=== PATIENT | male | born 1945 | race Caucasian/White ===

== ENCOUNTER → 2016-10-09 | Outpatient (CLI) | payer MEDICARE, BC | LOC: MW.CHNEURO 08:00 | PROVIDERS: ATTEND Psychiatry & Neurology Neuromuscular Medicine | DX: G30.1 Alzheimer's disease with late onset (principal); F02.80 Dementia in other diseases classified elsewhere, unspecified severity, without behavioral disturbance, psychotic disturbance, mood disturbance, and anxiety | CPT/HCPCS: 99214 ==

== ENCOUNTER 2017-06-04 17:06 | Inpatient (IN) | payer MEDICARE, BC ==
[2017-06-04] MEDS ORDERED: Sodium Chloride 0.9% 1,000 ML IV SCH ×2 (17:15→22:15)
--- NOTE | 2017-06-04 17:15 | EDM.PDOC ---
<Jatin Crenshaw - Last Filed: 06/04/17 18:13> ED HPI GENERAL MEDICAL PROBLEM - General Stated Complaint: STROKE Time Seen by Provider: 06/04/17 17:14 - History of Present Illness INITIAL COMMENTS - FREE TEXT/NARRATIVE: Patient stroke code was a 0, initial troponin level was negative. Patient's head CT was negative Patient's alcohol level was also negative. Patient has known dementia but was very diaphoretic on presentation. Patient's family indicated that he was slurring at the time of the incident approximately 2 hours ago but we were unable to elicit any slurring of speech while here there was no global weakness patient presented with just general confusion which family does acknowledge is his baseline. Spoke to Dr. Sanchez patient will be admitted to OBS telemetry for serial enzymes as well as any other diagnostic studies are pertinent in that time. - Related Data Allergies Allergy/AdvReac Type Severity Reaction Status Date / Time lisinopril Allergy Hives Verified 06/04/17 19:24 Home Meds: Home Meds Losartan/Hydrochlorothiazide [Losartan-HCTZ 100-12.5 MG] 1 mg PO DAILY 11/28/13 [History] Donepezil [Aricept] 5 mg PO DAILY 06/04/17 [History] Sertraline [Zoloft] 100 mg PO DAILY 06/04/17 [History] Tamsulosin [Flomax] 0.4 mg PO DAILY 06/04/17 [History] Course - Vital Signs Last Recorded V/S: Last Vital Signs Temp 36.8 C 06/05/17 04:00 Pulse 90 06/05/17 04:00 Resp 20 06/05/17 04:00 BP 130/85 06/05/17 04:00 Pulse Ox 93 L 06/05/17 04:00 - Orders/Labs/Meds Orders: Active Orders 24 hr Category Date Time Status Patient Status [ADT] Stat ADT 06/04/17 18:15 Active Cardiac Monitoring [RC] . DIRECTED Care 06/04/17 20:23 Inactive Insert Urinary Catheter [OM.PC] Q24H Care 06/04/17 20:15 Ordered Oxygen Therapy [RC] PRN Care 06/04/17 20:24 Active Urinary Catheter Assessment [RC] ASDIRECTED Care 06/04/17 20:04 Active VTE/DVT Education [RC] PER UNIT ROUTINE Care 06/04/17 20:24 Active Vital Signs [RC] Q4H Care 06/04/17 20:24 Active Regular Diet [DIET] Diet 06/04/17 Dinner Active Chest 1V Frontal [CR] Stat Exams 06/04/17 17:13 Taken Head wo Cont [CT] Stat Exams 06/04/17 17:13 Taken CBC WITH AUTO DIFF [HEME] AM Lab 06/06/17 05:11 Ordered CBC WITH AUTO DIFF [HEME] AM Lab 06/07/17 05:11 Ordered COMPREHENSIVE METABOLIC PN,CMP [CHEM] AM Lab 06/06/17 05:11 Ordered COMPREHENSIVE METABOLIC PN,CMP [CHEM] AM Lab 06/07/17 05:11 Ordered CULTURE BLOOD [BC] Stat Lab 06/04/17 20:35 Received CULTURE BLOOD [BC] Stat Lab 06/04/17 20:45 Received CULTURE URINE [RM] Routine Lab 06/04/17 20:15 Received MAGNESIUM [CHEM] AM Lab 06/06/17 05:11 Ordered MAGNESIUM [CHEM] AM Lab 06/07/17 05:11 Ordered Acetaminophen [Tylenol] Med 06/04/17 20:23 Active 500 mg PO Q4H PRN Bisacodyl [Dulcolax] Med 06/04/17 20:23 Active 5 mg PO DAILY PRN Cefepime [Maxipime in D5W 1 GM/50 ML] 1 gm Med 06/04/17 21:00 Active Premix Bag 1 bag IV Q8H Docusate Sodium [Colace] Med 06/04/17 20:23 Active 100 mg PO BID PRN Donepezil [Aricept] Med 06/05/17 09:00 Active 5 mg PO DAILY Heparin Sodium Med 06/05/17 08:00 Active 5,000 units SUBCUT Q8H Sertraline [Zoloft] Med 06/05/17 09:00 Active 100 mg PO DAILY Tamsulosin [Flomax] Med 06/05/17 09:00 Active 0.4 mg PO DAILY Temazepam [Restoril] Med 06/04/17 20:23 Active 15 mg PO BEDTIME PRN Blood Culture x2 Reflex Set [OM.PC] Stat Oth 06/04/17 20:20 Ordered Resuscitation Status Routine Resus Stat 06/04/17 20:23 Ordered Medication Orders Acetaminophen (Tylenol) 500 mg PO Q4H PRN PRN Reason: Pain (Mild 1-3)/fever Last Admin: 06/04/17 21:57 Dose: 500 mg Bisacodyl (Dulcolax) 5 mg PO DAILY PRN PRN Reason: Constipation Docusate Sodium (Colace) 100 mg PO BID PRN PRN Reason: Constipation Donepezil HCl (Aricept) 5 mg PO DAILY [facility] Heparin Sodium (Porcine) (Heparin Sodium) 5,000 units SUBCUT Q8H [facility] Cefepime HCl 1 gm/ Premix 50 mls @ 100 mls/hr IV Q8H [facility] Last Admin: 06/05/17 05:22 Dose: 100 mls/hr Infusion: 06/04/17 22:28 Dose: 100 mls/hr Admin: 06/04/17 21:58 Dose: 100 mls/hr Sodium Chloride (Normal Saline) 1,000 mls @ 125 mls/hr IV ASDIRECTED [facility] Last Admin: 06/05/17 01:20 Dose: 125 mls/hr Sertraline HCl (Zoloft) 100 mg PO DAILY [facility] Tamsulosin HCl (Flomax) 0.4 mg PO DAILY [facility] Temazepam (Restoril) 15 mg PO BEDTIME PRN PRN Reason: Sleep Last Admin: 06/05/17 01:10 Dose: 15 mg Labs: Laboratory Tests 06/04/17 06/04/17 06/04/17 Range/Units 17:10 17:10 17:10 WBC 12.09 H (4.0-11.0) K/uL RBC 5.36 (4.50-5.90) M/uL Hgb 16.7 (13.0-17.0) g/dL Hct 49.2 (38.0-50.0) % MCV 91.8 (80.0-98.0) fL MCH 31.2 (27.0-32.0) pg MCHC 33.9 (31.0-37.0) g/dL RDW Std Deviation 44.4 (28.0-62.0) fl RDW Coeff of Madhu 13 (11.0-15.0) % Plt Count 214 (150-400) K/uL MPV 10.20 (7.40-12.00) fL Neut % (Auto) 71.1 (48.0-80.0) % Lymph % (Auto) 18.7 (16.0-40.0) % [place] % (Auto) 9.2 (0.0-15.0) % Eos % (Auto) 0.8 (0.0-7.0) % Baso % (Auto) 0.2 (0.0-1.5) % Neut # (Auto) 8.6 H (1.4-5.7) K/uL Lymph # (Auto) 2.3 (0.6-2.4) K/uL [place] # (Auto) 1.1 H (0.0-0.8) K/uL Eos # (Auto) 0.1 (0.0-0.7) K/uL Baso # (Auto) 0.0 (0.0-0.1) K/uL Nucleated RBC % 0.0 /100WBC Nucleated RBCs # 0 K/uL INR 0.99 (0.86-1.11) Sodium 141 (136-146) mmol/L Potassium 3.6 (3.5-5.1) mmol/L Chloride 104 (98-110) mmol/L Carbon Dioxide 20 L (21-31) mmol/L BUN 14 (6.0-23.0) mg/dL Creatinine 1.6 H (0.6-1.5) mg/dL Est Cr Clr Drug Dosing TNP Estimated GFR (MDRD) 42.9 ml/min Glucose 156 H (60-110) mg/dL Calcium 10.5 (8.8-10.8) mg/dL Total Bilirubin 1.0 (0.1-1.5) mg/dL AST 20 (5-40) IU/L ALT 16 (8-54) IU/L Alkaline Phosphatase 170 H (40-150) Creatine Kinase 138 (9-236) IU/L CK-MB (CK-2) 0.8 (0-6.6) ng/ml Troponin I < 0.10 (0.0-0.29) NG/ML Total Protein 8.4 H (6.0-8.0) g/dL Albumin 4.5 (3.4-4.8) g/dL Globulin 3.9 H (2.0-3.5) g/dL Albumin/Globulin Ratio 1.2 L (1.3-2.8) TSH 3rd Generation 2.06 (0.47-5.0) uIU/mL Urine Color Urine Appearance Urine pH (5.0-8.0) Ur Specific [place] (1.001-1.035) Urine Protein (NEGATIVE) mg/dL Urine Glucose (UA) (NEGATIVE) mg/dL Urine Ketones (NEGATIVE) mg/dL Urine Occult Blood (NEGATIVE) Urine Nitrite (NEGATIVE) Urine Bilirubin (NEGATIVE) Urine Ictotest Urine Urobilinogen (<2.0) EU/dL Ur Leukocyte Esterase (NEGATIVE) Urine RBC (0-2/HPF) Urine WBC (0-5/HPF) Ur Epithelial Cells (NONE-FEW) Urine Bacteria (NEGATIVE) Hyaline Casts (0-2/LPF) Urine Mucus (NONE-MOD) Urine Opiates Screen (NEGATIVE) Ur Oxycodone Screen (NEGATIVE) Urine Methadone Screen (NEGATIVE) Ur Barbiturates Screen (NEGATIVE) Ur Phencyclidine Scrn (NEGATIVE) Ur Amphetamine Screen (NEGATIVE) U Methamphetamines Scrn (NEGATIVE) U Benzodiazepines Scrn (NEGATIVE) U Cocaine Metab Screen (NEGATIVE) U Marijuana (THC) Screen (NEGATIVE) Ethyl Alcohol < 10.0 mg/dL 06/04/17 06/04/17 Range/Units 20:15 20:15 WBC (4.0-11.0) K/uL RBC (4.50-5.90) M/uL Hgb (13.0-17.0) g/dL Hct (38.0-50.0) % MCV (80.0-98.0) fL MCH (27.0-32.0) pg MCHC (31.0-37.0) g/dL RDW Std Deviation (28.0-62.0) fl RDW Coeff of Madhu (11.0-15.0) % Plt Count (150-400) K/uL MPV (7.40-12.00) fL Neut % (Auto) (48.0-80.0) % Lymph % (Auto) (16.0-40.0) % [place] % (Auto) (0.0-15.0) % Eos % (Auto) (0.0-7.0) % Baso % (Auto) (0.0-1.5) % Neut # (Auto) (1.4-5.7) K/uL Lymph # (Auto) (0.6-2.4) K/uL [place] # (Auto) (0.0-0.8) K/uL Eos # (Auto) (0.0-0.7) K/uL Baso # (Auto) (0.0-0.1) K/uL Nucleated RBC % /100WBC Nucleated RBCs # K/uL INR (0.86-1.11) Sodium (136-146) mmol/L Potassium (3.5-5.1) mmol/L Chloride (98-110) mmol/L Carbon Dioxide (21-31) mmol/L BUN (6.0-23.0) mg/dL Creatinine (0.6-1.5) mg/dL Est Cr Clr Drug Dosing Estimated GFR (MDRD) ml/min Glucose (60-110) mg/dL Calcium (8.8-10.8) mg/dL Total Bilirubin (0.1-1.5) mg/dL AST (5-40) IU/L ALT (8-54) IU/L Alkaline Phosphatase (40-150) Creatine Kinase (9-236) IU/L CK-MB (CK-2) (0-6.6) ng/ml Troponin I (0.0-0.29) NG/ML Total Protein (6.0-8.0) g/dL Albumin (3.4-4.8) g/dL Globulin (2.0-3.5) g/dL Albumin/Globulin Ratio (1.3-2.8) TSH 3rd Generation (0.47-5.0) uIU/mL Urine Color YELLOW Urine Appearance SLT CLOUDY Urine pH 5.5 (5.0-8.0) Ur Specific [place] >= 1.030 (1.001-1.035) Urine Protein NEGATIVE (NEGATIVE) mg/dL Urine Glucose (UA) NEGATIVE (NEGATIVE) mg/dL Urine Ketones 15 H (NEGATIVE) mg/dL Urine Occult Blood TRACE-INTACT (NEGATIVE) Urine Nitrite NEGATIVE (NEGATIVE) Urine Bilirubin SMALL H (NEGATIVE) Urine Ictotest NEGATIVE Urine Urobilinogen 0.2 (<2.0) EU/dL Ur Leukocyte Esterase NEGATIVE (NEGATIVE) Urine RBC 1-2 (0-2/HPF) Urine WBC 0-2 (0-5/HPF) Ur Epithelial Cells RARE (NONE-FEW) Urine Bacteria FEW (NEGATIVE) Hyaline Casts 0-2 (0-2/LPF) Urine Mucus MANY (NONE-MOD) Urine Opiates Screen NEGATIVE (NEGATIVE) Ur Oxycodone Screen NEGATIVE (NEGATIVE) Urine Methadone Screen NEGATIVE (NEGATIVE) Ur Barbiturates Screen NEGATIVE (NEGATIVE) Ur Phencyclidine Scrn NEGATIVE (NEGATIVE) Ur Amphetamine Screen NEGATIVE (NEGATIVE) U Methamphetamines Scrn NEGATIVE (NEGATIVE) U Benzodiazepines Scrn NEGATIVE (NEGATIVE) U Cocaine Metab Screen NEGATIVE (NEGATIVE) U Marijuana (THC) Screen NEGATIVE (NEGATIVE) Ethyl Alcohol mg/dL Meds: Medications Generic Name Dose Route Start Last Admin Trade Name Isael PRN Reason Stop Dose Admin Acetaminophen 500 mg 06/04/17 20:23 06/04/17 21:57 Tylenol PO 500 mg Q4H PRN Administration Pain (Mild 1-3)/fever Bisacodyl 5 mg 06/04/17 20:23 Dulcolax PO DAILY PRN Constipation Docusate Sodium 100 mg 06/04/17 20:23 Colace PO BID PRN Constipation Donepezil HCl 5 mg 06/05/17 09:00 Aricept PO DAILY [facility] Heparin Sodium (Porcine) 5,000 units 06/05/17 08:00 Heparin Sodium SUBCUT Q8H [facility] Cefepime HCl 1 gm/ Premix 50 mls @ 100 mls/hr 06/04/17 21:00 06/05/17 05:22 IV 100 mls/hr Q8H ESTEF[facility] Administration Sodium Chloride 1,000 mls @ 125 mls/hr 06/04/17 22:15 06/05/17 01:20 Normal Saline IV 125 mls/hr ASDIRECTED [facility] Administration Sertraline HCl 100 mg 06/05/17 09:00 Zoloft PO DAILY [facility] Tamsulosin HCl 0.4 mg 06/05/17 09:00 Flomax PO DAILY [facility] Temazepam 15 mg 06/04/17 20:23 06/05/17 01:10 Restoril PO 15 mg BEDTIME PRN Administration Sleep Discontinued Medications Generic Name Dose Route Start Last Admin Trade Name Isael PRN Reason Stop Dose Admin Sodium Chloride 1,000 mls @ 125 mls/hr 06/04/17 17:15 06/04/17 17:46 Normal Saline IV 125 mls/hr STAT ESTEFANI Administration Sodium Chloride 1,000 mls @ 150 mls/hr 06/05/17 09:00 Normal Saline IV DAILY [facility] Influenza Virus Vaccine 1 each 06/04/17 19:50 Pharmacy To Dose - Influenza Vaccine IM 06/04/17 19:51 ONETIME ONE Influenza Virus Vaccine 60 mcg 06/04/17 20:00 Fluarix Quad [id number] IM 06/04/17 20:01 .ONCE ONE Departure - Departure Disposition: Admitted As Inpatient 68 Clinical Impression: Delirium, Diaphoresis - Discharge Information - My Orders Last 24 Hours: My Active Orders 06/04/17 17:13 Chest 1V Frontal [CR] Stat Head wo Cont [CT] Stat - Assessment/Plan Last 24 Hours: My Active Orders 06/04/17 17:13 Chest 1V Frontal [CR] Stat Head wo Cont [CT] Stat <Gonsalo Fletcher - Last Filed: 06/05/17 07:23> ED HPI GENERAL MEDICAL PROBLEM - General Source of Information: Reports: Patient - History of Present Illness INITIAL COMMENTS - FREE TEXT/NARRATIVE: HISTORY AND PHYSICAL: History of present illness: [Patient presents by private vehicle, he has a history of dementia and is confused at current, his family is worried about stroke as he had had a fall, his last seen normal at 3-1/2-4 hours prior, on arrival his score is 0 as well as repeat stroke score patient has no complaints such as fever nausea vomiting diarrhea constipation chest pain shortness breath headache dizziness palpitation no bowel or urine symptoms he is generally unreliable due to dementia diagnosis, is visibly diaphoretic but that has no shortness of breath and complains of no chest pain Review of systems: As per history of present illness and below otherwise all systems reviewed and negative. Past medical history: As per history of present illness and as reviewed below otherwise noncontributory. Surgical history: As per history of present illness and as reviewed below otherwise noncontributory. Social history: No reported history of drug or alcohol abuse. Family history: As per history of present illness and as reviewed below otherwise noncontributory. Physical exam: HEENT: Atraumatic, normocephalic, pupils reactive, negative for conjunctival pallor or scleral icterus, mucous membranes moist, throat clear, neck supple, nontender, trachea midline. Lungs: Clear to auscultation, breath sounds equal bilaterally, chest nontender. Heart: S1S2, regular, negative for clicks, rubs, or JVD. Abdomen: Soft, nondistended, nontender. Negative for masses or hepatosplenomegaly. Negative for costovertebral tenderness. Pelvis: Stable nontender. Genitourinary: Deferred. Rectal: Deferred. Extremities: Atraumatic, negative for cords or calf pain. Neurovascular unremarkable. Neuro: Awake, alert, oriented. Cranial nerves II through XII unremarkable. Cerebellum unremarkable. Motor and sensory unremarkable throughout. Exam nonfocal. Diagnostics: []Lab as below EKG Chest [address] no contrast Therapeutics: []Normal saline Patient admitted for observation telemetry Impression: []Confusion/delirium Definitive disposition and diagnosis as appropriate pending reevaluation and review of above. Social & Family History - Tobacco Use Smoking Status *Q: Never Smoker Second Hand Smoke Exposure: No - Alcohol Use Days Per Week of Alcohol Use: 0 - Recreational Drug Use Recreational Drug Use: No Drug Use in Last 12 Months: No ED ROS GENERAL - Review of Systems Review Of Systems: ROS reveals no pertinent complaints other than HPI. ED EXAM, GENERAL - Physical Exam Exam: See Below Course - Vital Signs Last Recorded V/S: Last Vital Signs Temp 36.8 C 06/05/17 04:00 Pulse 90 06/05/17 04:00 Resp 20 06/05/17 04:00 BP 130/85 06/05/17 04:00 Pulse Ox 93 L 06/05/17 04:00 - Orders/Labs/Meds Labs: Laboratory Tests 06/04/17 06/04/17 06/04/17 Range/Units 17:10 17:10 17:10 WBC 12.09 H (4.0-11.0) K/uL RBC 5.36 (4.50-5.90) M/uL Hgb 16.7 (13.0-17.0) g/dL Hct 49.2 (38.0-50.0) % MCV 91.8 (80.0-98.0) fL MCH 31.2 (27.0-32.0) pg MCHC 33.9 (31.0-37.0) g/dL RDW Std Deviation 44.4 (28.0-62.0) fl RDW Coeff of Madhu 13 (11.0-15.0) % Plt Count 214 (150-400) K/uL MPV 10.20 (7.40-12.00) fL Neut % (Auto) 71.1 (48.0-80.0) % Lymph % (Auto) 18.7 (16.0-40.0) % [place] % (Auto) 9.2 (0.0-15.0) % Eos % (Auto) 0.8 (0.0-7.0) % Baso % (Auto) 0.2 (0.0-1.5) % Neut # (Auto) 8.6 H (1.4-5.7) K/uL Lymph # (Auto) 2.3 (0.6-2.4) K/uL [place] # (Auto) 1.1 H (0.0-0.8) K/uL Eos # (Auto) 0.1 (0.0-0.7) K/uL Baso # (Auto) 0.0 (0.0-0.1) K/uL Nucleated RBC % 0.0 /100WBC Nucleated RBCs # 0 K/uL INR 0.99 (0.86-1.11) Sodium 141 (136-146) mmol/L Potassium 3.6 (3.5-5.1) mmol/L Chloride 104 (98-110) mmol/L Carbon Dioxide 20 L (21-31) mmol/L BUN 14 (6.0-23.0) mg/dL Creatinine 1.6 H (0.6-1.5) mg/dL Est Cr Clr Drug Dosing TNP Estimated GFR (MDRD) 42.9 ml/min Glucose 156 H (60-110) mg/dL Calcium 10.5 (8.8-10.8) mg/dL Total Bilirubin 1.0 (0.1-1.5) mg/dL AST 20 (5-40) IU/L ALT 16 (8-54) IU/L Alkaline Phosphatase 170 H (40-150) Creatine Kinase 138 (9-236) IU/L CK-MB (CK-2) 0.8 (0-6.6) ng/ml Troponin I < 0.10 (0.0-0.29) NG/ML Total Protein 8.4 H (6.0-8.0) g/dL Albumin 4.5 (3.4-4.8) g/dL Globulin 3.9 H (2.0-3.5) g/dL Albumin/Globulin Ratio 1.2 L (1.3-2.8) TSH 3rd Generation 2.06 (0.47-5.0) uIU/mL Urine Color Urine Appearance Urine pH (5.0-8.0) Ur Specific [place] (1.001-1.035) Urine Protein (NEGATIVE) mg/dL Urine Glucose (UA) (NEGATIVE) mg/dL Urine Ketones (NEGATIVE) mg/dL Urine Occult Blood (NEGATIVE) Urine Nitrite (NEGATIVE) Urine Bilirubin (NEGATIVE) Urine Ictotest Urine Urobilinogen (<2.0) EU/dL Ur Leukocyte Esterase (NEGATIVE) Urine RBC (0-2/HPF) Urine WBC (0-5/HPF) Ur Epithelial Cells (NONE-FEW) Urine Bacteria (NEGATIVE) Hyaline Casts (0-2/LPF) Urine Mucus (NONE-MOD) Urine Opiates Screen (NEGATIVE) Ur Oxycodone Screen (NEGATIVE) Urine Methadone Screen (NEGATIVE) Ur Barbiturates Screen (NEGATIVE) Ur Phencyclidine Scrn (NEGATIVE) Ur Amphetamine Screen (NEGATIVE) U Methamphetamines Scrn (NEGATIVE) U Benzodiazepines Scrn (NEGATIVE) U Cocaine Metab Screen (NEGATIVE) U Marijuana (THC) Screen (NEGATIVE) Ethyl Alcohol < 10.0 mg/dL 06/04/17 06/04/17 Range/Units 20:15 20:15 WBC (4.0-11.0) K/uL RBC (4.50-5.90) M/uL Hgb (13.0-17.0) g/dL Hct (38.0-50.0) % MCV (80.0-98.0) fL MCH (27.0-32.0) pg MCHC (31.0-37.0) g/dL RDW Std Deviation (28.0-62.0) fl RDW Coeff of Madhu (11.0-15.0) % Plt Count (150-400) K/uL MPV (7.40-12.00) fL Neut % (Auto) (48.0-80.0) % Lymph % (Auto) (16.0-40.0) % [place] % (Auto) (0.0-15.0) % Eos % (Auto) (0.0-7.0) % Baso % (Auto) (0.0-1.5) % Neut # (Auto) (1.4-5.7) K/uL Lymph # (Auto) (0.6-2.4) K/uL [place] # (Auto) (0.0-0.8) K/uL Eos # (Auto) (0.0-0.7) K/uL Baso # (Auto) (0.0-0.1) K/uL Nucleated RBC % /100WBC Nucleated RBCs # K/uL INR (0.86-1.11) Sodium (136-146) mmol/L Potassium (3.5-5.1) mmol/L Chloride (98-110) mmol/L Carbon Dioxide (21-31) mmol/L BUN (6.0-23.0) mg/dL Creatinine (0.6-1.5) mg/dL Est Cr Clr Drug Dosing Estimated GFR (MDRD) ml/min Glucose (60-110) mg/dL Calcium (8.8-10.8) mg/dL Total Bilirubin (0.1-1.5) mg/dL AST (5-40) IU/L ALT (8-54) IU/L Alkaline Phosphatase (40-150) Creatine Kinase (9-236) IU/L CK-MB (CK-2) (0-6.6) ng/ml Troponin I (0.0-0.29) NG/ML Total Protein (6.0-8.0) g/dL Albumin (3.4-4.8) g/dL Globulin (2.0-3.5) g/dL Albumin/Globulin Ratio (1.3-2.8) TSH 3rd Generation (0.47-5.0) uIU/mL Urine Color YELLOW Urine Appearance SLT CLOUDY Urine pH 5.5 (5.0-8.0) Ur Specific [place] >= 1.030 (1.001-1.035) Urine Protein NEGATIVE (NEGATIVE) mg/dL Urine Glucose (UA) NEGATIVE (NEGATIVE) mg/dL Urine Ketones 15 H (NEGATIVE) mg/dL Urine Occult Blood TRACE-INTACT (NEGATIVE) Urine Nitrite NEGATIVE (NEGATIVE) Urine Bilirubin SMALL H (NEGATIVE) Urine Ictotest NEGATIVE Urine Urobilinogen 0.2 (<2.0) EU/dL Ur Leukocyte Esterase NEGATIVE (NEGATIVE) Urine RBC 1-2 (0-2/HPF) Urine WBC 0-2 (0-5/HPF) Ur Epithelial Cells RARE (NONE-FEW) Urine Bacteria FEW (NEGATIVE) Hyaline Casts 0-2 (0-2/LPF) Urine Mucus MANY (NONE-MOD) Urine Opiates Screen NEGATIVE (NEGATIVE) Ur Oxycodone Screen NEGATIVE (NEGATIVE) Urine Methadone Screen NEGATIVE (NEGATIVE) Ur Barbiturates Screen NEGATIVE (NEGATIVE) Ur Phencyclidine Scrn NEGATIVE (NEGATIVE) Ur Amphetamine Screen NEGATIVE (NEGATIVE) U Methamphetamines Scrn NEGATIVE (NEGATIVE) U Benzodiazepines Scrn NEGATIVE (NEGATIVE) U Cocaine Metab Screen NEGATIVE (NEGATIVE) U Marijuana (THC) Screen NEGATIVE (NEGATIVE) Ethyl Alcohol mg/dL Meds: Medications Generic Name Dose Route Start Last Admin Trade Name Freq PRN Reason Stop Dose Admin Acetaminophen 500 mg 06/04/17 20:23 06/04/17 21:57 Tylenol PO 500 mg Q4H PRN Administration Pain (Mild 1-3)/fever Bisacodyl 5 mg 06/04/17 20:23 Dulcolax PO DAILY PRN Constipation Docusate Sodium 100 mg 06/04/17 20:23 Colace PO BID PRN Constipation Donepezil HCl 5 mg 06/05/17 09:00 Aricept PO DAILY [facility] Heparin Sodium (Porcine) 5,000 units 06/05/17 08:00 Heparin Sodium SUBCUT Q8H [facility] Cefepime HCl 1 gm/ Premix 50 mls @ 100 mls/hr 06/04/17 21:00 06/05/17 05:22 IV 100 mls/hr Q8H [facility] Administration Sodium Chloride 1,000 mls @ 125 mls/hr 06/04/17 22:15 06/05/17 01:20 Normal Saline IV 125 mls/hr ASDIRECTED [facility] Administration Sertraline HCl 100 mg 06/05/17 09:00 Zoloft PO DAILY [facility] Tamsulosin HCl 0.4 mg 06/05/17 09:00 Flomax PO DAILY [facility] Temazepam 15 mg 06/04/17 20:23 06/05/17 01:10 Restoril PO 15 mg BEDTIME PRN Administration Sleep Discontinued Medications Generic Name Dose Route Start Last Admin Trade Name Freq PRN Reason Stop Dose Admin Sodium Chloride 1,000 mls @ 125 mls/hr 06/04/17 17:15 06/04/17 17:46 Normal Saline IV 125 mls/hr STAT EST[facility] Administration Sodium Chloride 1,000 mls @ 150 mls/hr 06/05/17 09:00 Normal Saline IV DAILY [facility] Influenza Virus Vaccine 1 each 06/04/17 19:50 Pharmacy To Dose - Influenza Vaccine IM 06/04/17 19:51 ONETIME ONE Influenza Virus Vaccine 60 mcg 06/04/17 20:00 Fluarix Quad [id number] IM 06/04/17 20:01 .ONCE ONE Departure - Departure Time of Disposition: 07:22 Condition: Fair
[2017-06-04 17:51] LABS: CHLORIDE,CL 104 mmol/L (98-110); SODIUM,NA 141 mmol/L (136-146)
[2017-06-04] MEDS ORDERED: FLU Vacc QS 2017-18 (36mos UP)/PF 60 MCG/0.5 ML Syringe IM ONE (20:00)
--- NOTE | 2017-06-04 20:11 | PCM.HP ---
H&P History of Present Illness - General Date of Service: 06/04/17 Admit Problem/Dx: Admission Diagnosis/Problem Admission Diagnosis/Problem Delirium Source of Information: Family, Provider - History of Present Illness Initial Comments - Free Text/Narative: This man has Alzheimer's dementia. He lives with a daughter. His family noticed that he has been weak and shaky today. He was sweaty. He was more confused than usual and he had some transient slurring of speech. He was seen in the ED and admission was recommended. - Related Data Allergies/Adverse Reactions: Allergies Allergy/AdvReac Type Severity Reaction Status Date / Time lisinopril Allergy Hives Verified 06/04/17 19:24 Home Medications: Home Meds Losartan/Hydrochlorothiazide [Losartan-HCTZ 100-12.5 MG] 1 mg PO DAILY 11/28/13 [History] Donepezil [Aricept] 5 mg PO DAILY 06/04/17 [History] Sertraline [Zoloft] 100 mg PO DAILY 06/04/17 [History] Tamsulosin [Flomax] 0.4 mg PO DAILY 06/04/17 [History] Past Medical History Cardiovascular History: Reports: Hypertension. Denies: CAD, Cardiomyopathy, Heart Failure, Heart Murmur, High Cholesterol, [place] Respiratory History: Denies: COPD, Interstitial Lung Disease Gastrointestinal History: Denies: Cirrhosis Genitourinary History: Reports: BPH. Denies: Chronic Renal Insuffiency Musculoskeletal History: Denies: Connective Tissue Disease, Muscular Dystrophy, RA, SLE Neurological History: Reports: Alzheimers Disease. Denies: CVA, MS, Parkinson's , Seizure Psychiatric History: Reports: Anxiety, Depression Endocrine/Metabolic History: Denies: Diabetes, Type I, Diabetes, Type II Hematologic History: Denies: Anticoagulation Therapy, Bleeding Disorder Immunologic History: Denies: HIV Oncologic (Cancer) History: Reports: None - Infectious Disease History Infectious Disease History: Reports: Shingles Social & Family History - Family History HEENT: Reports: None Cardiac: Reports: CAD, [place] Neurological: Reports: Alzheimers Disease Endocrine/Metabolic: Reports: Hypoparathyroidism Oncologic: Reports: Breast, Leukemia, Ovarian - Tobacco Use Smoking Status *Q: Never Smoker Second Hand Smoke Exposure: No - Caffeine Use Caffeine Use: Reports: Coffee - Alcohol Use Days Per Week of Alcohol Use: 0 - Recreational Drug Use Recreational Drug Use: No Drug Use in Last 12 Months: No H&P Review of Systems - Review of Systems: Review Of Systems: See Below General: Reports: Other (sweaty). Denies: Fever Pulmonary: Reports: Cough (minimal cough). Denies: Shortness of Breath Cardiovascular: Denies: Chest Pain, Palpitations, Edema, Lightheadedness Gastrointestinal: Denies: Abdominal Pain, Black Stool, Bloody Stool, Diarrhea, Difficulty Swallowing, Hematemesis, Hematochezia, Vomiting Genitourinary: Denies: Dysuria, Hematuria Psychiatric: Reports: Confusion Exam - Exam Exam: See Below - Vital Signs Vital Signs: Last Vital Signs Temp 98.1 F 06/04/17 17:57 Pulse 115 H 06/04/17 17:57 Resp 16 06/04/17 17:57 BP 146/103 H 06/04/17 17:57 Pulse Ox 96 06/04/17 17:57 Weight: 81 kg - Exam General: Cooperative (pleasant but very confused. seems unable to answer simple questions in a coherent fashion.) HEENT: EOMI Neck: Supple, Trachea Midline Lungs: Clear to Auscultation, Normal Respiratory Effort Cardiovascular: Regular Rate, Regular Rhythm. No: Tachycardia, Systolic Murmur , Diastolic Murmur GI/Abdominal Exam: Soft, Non-Tender (Male) Exam: Normal Inspection. No: Rash, Scrotal Swelling Rectal (Males) Exam: Normal Exam Extremities: No Pedal Edema (rectal temperature was 99.8 F ; rectal exam normal; ), Slow Capillary Refill (capillary refill in toes about 3-4 seconds) Neuro Extensive - Motor, Sensory, Reflexes: No: Facial palsy (L), Facial Palsy ( R), Hemeplagia (R), Hemeplagia (L) - Patient Data Result Diagrams: 06/04/17 17:10 06/04/17 17:10 [place] Results Last 24 hrs: Microbiology 06/04/17 18:25 Influenza Type A Antigen Screen - Final Nasopharyngeal Swab NEGATIVE INFLUENZA A VIRUS AG Influenza Type B Antigen Screen - Final NEGATIVE INFLUENZA B VIRUS AG *Q Meaningful Use (ADM) - VTE *Q VTE Criteria *Q: - Stroke *Q Stroke Criteria *Q: - AMI *Q AMI Criteria *Q: - Problem List (1) Alzheimer's dementia SNOMED Code(s): 24696708 ICD Code: G30.9 - ALZHEIMER'S DISEASE, UNSPECIFIED Status: Acute Current Visit: Yes (2) Sepsis SNOMED Code(s): 19200882 ICD Code: A41.9 - SEPSIS, UNSPECIFIED ORGANISM Status: Acute Current Visit: Yes Problem List Initiated/Reviewed/Updated: Yes Orders Last 24hrs: Medication Orders Sodium Chloride (Normal Saline) 1,000 mls @ 125 mls/hr IV STAT [facility] Last Admin: 06/04/17 17:46 Dose: 125 mls/hr Assessment/Plan Comment:: 06/04/2017 he has a tachycardia and slight elevation in his wbc count. He has an anion gap of 17. His rectal temperature is slightly elevated although technically in the normal range. These findings are c/w sepsis. Will get catheterized UA and culture and presumptively start antibiotics. blood culture ordered. I discussed "code status " with family members . He is to be code level 1 for the present time. I discussed diagnosis and guarded prognosis. See orders Osmar Sanchez MD
[2017-06-04] MEDS ORDERED: Docusate Sodium 100 MG Cap PO PRN (20:23)
[2017-06-04] MEDS ORDERED: Acetaminophen 325 MG Tab PO PRN (20:23)
[2017-06-04] MEDS ORDERED: Bisacodyl 5 MG Tab PO PRN (20:23)
[2017-06-04] MEDS: Cefepime 1 GM in Premix Bag 1 BAG IV SCH (21:58)
[2017-06-05] MEDS: Temazepam 15 MG Cap PO PRN ×2 (01:10→22:51)
[2017-06-05] MEDS: Cefepime 1 GM in Premix Bag 1 BAG IV SCH ×3 (05:22→21:32)
[2017-06-05 06:42] LABS: CHLORIDE,CL 111 mmol/L (98-110); SODIUM,NA 140 mmol/L (136-146)
[2017-06-05] MEDS: Heparin Sodium 5,000 Units/ML Vial SUBCUT SCH ×2 (08:23→16:08)
[2017-06-05] MEDS: Tamsulosin 0.4 MG Cap.ER PO SCH (08:24)
[2017-06-05] MEDS: Sertraline 100 MG Tab PO SCH (08:24)
[2017-06-05] MEDS: Donepezil 5 MG Tab PO SCH (08:24)
[2017-06-05] MEDS ORDERED: Sodium Chloride 0.9% 1,000 ML IV SCH (09:00)
--- NOTE | 2017-06-05 11:04 | CT ---
EXAM DATE: 06/04/17 PATIENT'S AGE: 72 Patient: NELA FRANKEL Facility: [place], [place] Site . Site : 1945 Study: CT Head STROKE PROTOCOL wo cont [id number]/15/2017 5:30:21 PM Ordering Physician: Doctor Maza Final Report: INDICATION: STROKE CODE TECHNIQUE: Non-contrast CT of the head is submitted. Compared to prior study from April 29, 2014. FINDINGS: The ventricles, sulci and gyri are of normal size, shape and contour. Midline structures are centrally located. No convincing evidence of intra- or extra- axial fluid collections. IMPRESSION: 1. No radiographic evidence of acute intracranial abnormalities. Dictated by Alex Elder MD @ 06/04/2017 5:35:05 PM Dictated by: Alex Elder MD @ 06/04/2017 17:35:37 (Electronic Signature) Report Signed by Proxy. [facility]
--- NOTE | 2017-06-05 11:05 | CR ---
EXAM DATE: 06/04/17 PATIENT'S AGE: 72 Patient: NELA FRANKEL Facility: [place], [place] Site . Site : 1945 Study: XRay Chest [id number]/15/2017 5:30:43 PM Ordering Physician: Doctor Maza Final Report: INDICATION: stroke TECHNIQUE: Chest 1 view COMPARISON: None FINDINGS: Cardiovascular and mediastinum: Heart size and vasculature are normal in caliber and appearance. Mediastinum is within normal limits. Lungs and pleural space: No focal consolidation. Elevation of the right hemidiaphragm. Mild scarring. No sign of pleural effusion. No pneumothorax. Bones and soft tissues: Degenerative changes. IMPRESSION: No acute cardiopulmonary disease. Dictated by Murali Pederson MD @ 06/04/2017 5:57:32 PM Dictated by: Murali Pederson MD @ 06/04/2017 17:57:55 (Electronic Signature) Report Signed by Proxy. [facility]
--- NOTE | 2017-06-05 12:54 | PCM.PN ---
- General Info Date of Service: 06/05/17 Subjective Update: 9-year-old male with a history of Alzheimer's dementia was evaluated this morning with his family around his bedside. As for the patient, he has no complaints. He denies any fevers chills shortness of breath. The daughter of the patient tells me that he did have an episode of acute confusion after having a fall and that's why they brought him in. He also showed episodes of slurred speech. All of these symptoms have resolved now. Patient also found to have an elevated white count on admission. - Review of Systems General: Reports: Other (See history of present illness) - Patient Data Vitals - Most Recent: Last Vital Signs Temp 36.8 C 06/05/17 12:00 Pulse 104 H 06/05/17 12:00 Resp 22 H 06/05/17 12:00 BP 145/91 H 06/05/17 12:00 Pulse Ox 91 L 06/05/17 12:00 Weight - Most Recent: 81.5 kg I&O - Last 24 Hours: Intake & Output 06/04/17 06/05/17 06/05/17 22:59 06:59 14:59 Intake Total 50 1471 Output Total 350 Balance 50 1121 Lab Results Last 24 Hours: Laboratory Results - last 24 hr 06/05/17 06/05/17 Range/Units 06:08 06:08 WBC 10.27 (4.0-11.0) K/uL RBC 4.62 (4.50-5.90) M/uL Hgb 14.2 (13.0-17.0) g/dL Hct 42.7 (38.0-50.0) % MCV 92.4 (80.0-98.0) fL MCH 30.7 (27.0-32.0) pg MCHC 33.3 (31.0-37.0) g/dL RDW Std Deviation 45.0 (28.0-62.0) fl RDW Coeff of Madhu 13 (11.0-15.0) % Plt Count 169 (150-400) K/uL MPV 9.70 (7.40-12.00) fL Neut % (Auto) 75.6 (48.0-80.0) % Lymph % (Auto) 13.2 L (16.0-40.0) % Lyman % (Auto) 10.7 (0.0-15.0) % Eos % (Auto) 0.4 (0.0-7.0) % Baso % (Auto) 0.1 (0.0-1.5) % Neut # (Auto) 7.8 H (1.4-5.7) K/uL Lymph # (Auto) 1.4 (0.6-2.4) K/uL Lyman # (Auto) 1.1 H (0.0-0.8) K/uL Eos # (Auto) 0.0 (0.0-0.7) K/uL Baso # (Auto) 0.0 (0.0-0.1) K/uL Nucleated RBC % 0.0 /100WBC Nucleated RBCs # 0 K/uL Sodium 140 (136-146) mmol/L Potassium 3.7 (3.5-5.1) mmol/L Chloride 111 H (98-110) mmol/L Carbon Dioxide 21 (21-31) mmol/L BUN 12 (6.0-23.0) mg/dL Creatinine 1.0 (0.6-1.5) mg/dL Est Cr Clr Drug Dosing 62.03 mL/min Estimated GFR (MDRD) > 60.0 ml/min Glucose 118 H (60-110) mg/dL Calcium 9.0 (8.8-10.8) mg/dL Magnesium 1.4 L (1.5-2.3) mEq/L Total Bilirubin 1.1 (0.1-1.5) mg/dL AST 18 (5-40) IU/L ALT 12 (8-54) IU/L Alkaline Phosphatase 125 (40-150) Total Protein 6.4 (6.0-8.0) g/dL Albumin 3.7 (3.4-4.8) g/dL Globulin 2.7 (2.0-3.5) g/dL Albumin/Globulin Ratio 1.4 (1.3-2.8) Med Orders - Current: Current Medications Acetaminophen (Tylenol) 500 mg PO Q4H PRN PRN Reason: Pain (Mild 1-3)/fever Last Admin: 06/04/17 21:57 Dose: 500 mg Bisacodyl (Dulcolax) 5 mg PO DAILY PRN PRN Reason: Constipation Docusate Sodium (Colace) 100 mg PO BID PRN PRN Reason: Constipation Donepezil HCl (Aricept) 5 mg PO DAILY [facility] Last Admin: 06/05/17 08:24 Dose: 5 mg Heparin Sodium (Porcine) (Heparin Sodium) 5,000 units SUBCUT Q8H [facility] Last Admin: 06/05/17 08:23 Dose: 5,000 units Sodium Chloride (Normal Saline) 1,000 mls @ 125 mls/hr IV ASDIRECTED [facility] Last Admin: 06/05/17 01:20 Dose: 125 mls/hr Sertraline HCl (Zoloft) 100 mg PO DAILY [facility] Last Admin: 06/05/17 08:24 Dose: 100 mg Tamsulosin HCl (Flomax) 0.4 mg PO DAILY [facility] Last Admin: 06/05/17 08:24 Dose: 0.4 mg Temazepam (Restoril) 15 mg PO BEDTIME PRN PRN Reason: Sleep Last Admin: 06/05/17 01:10 Dose: 15 mg Discontinued Medications Sodium Chloride (Normal Saline) 1,000 mls @ 125 mls/hr IV STAT [facility] Last Admin: 06/04/17 17:46 Dose: 125 mls/hr Cefepime HCl 1 gm/ Premix 50 mls @ 100 mls/hr IV Q8H [facility] Last Admin: 06/05/17 05:22 Dose: 100 mls/hr Sodium Chloride (Normal Saline) 1,000 mls @ 150 mls/hr IV DAILY [facility] Influenza Virus Vaccine (Pharmacy To Dose - Influenza Vaccine) 1 each IM ONETIME ONE Stop: 06/04/17 19:51 Influenza Virus Vaccine (Fluarix Quad [id number]) 60 mcg IM .ONCE ONE Stop: 06/04/17 20:01 - Exam General: Alert, Oriented HEENT: Pupils Equal Lungs: Clear to Auscultation, Normal Respiratory Effort Cardiovascular: Regular Rate, Regular Rhythm GI/Abdominal Exam: Normal Bowel Sounds, Soft Extremities: Normal Inspection, Normal Range of Motion, No Pedal Edema, Normal Capillary Refill Skin: Other (Warm intact, no rashes, abscesses, any areas of cellulitis.) Psy/Mental Status: Agitated, Other (History of Alzheimers. Normal speech) - Problem List Review Problem List Initiated/Reviewed/Updated: Yes - My Orders Last 24 Hours: My Active Orders 06/05/17 09:25 Discontinue Telemetry Monitoring [Cardiac Monitoring Discontinue] [RC] Click to Edit 06/05/17 10:26 Remove Harris Catheter [Urinary Catheter Removal] [RC] Per Unit Routine - Plan Plan:: Assessment: #1. Leukocytosis improved #2. History of Alzheimer's dementia #3. Acute signs of agitation Plan: #1. PT to evaluate and treat #2. Continue IV 1g cefepime q8hrs #3. Follow up on blood cultures #4. Anticipate discharge to [place]
[2017-06-06] MEDS: Heparin Sodium 5,000 Units/ML Vial SUBCUT SCH ×3 (00:30→16:04)
[2017-06-06] MEDS: Cefepime 1 GM in Premix Bag 1 BAG IV SCH (04:13)
[2017-06-06 05:52] LABS: CHLORIDE,CL 115 mmol/L (98-110); SODIUM,NA 144 mmol/L (136-146)
[2017-06-06] MEDS: Tamsulosin 0.4 MG Cap.ER PO SCH (08:15)
[2017-06-06] MEDS: Sertraline 100 MG Tab PO SCH (08:15)
[2017-06-06] MEDS: Donepezil 5 MG Tab PO SCH (08:16)
--- NOTE | 2017-06-06 14:07 | PCM.PN ---
- General Info Date of Service: 06/06/17 Subjective Update: 9-year-old male with a history of Alzheimer's dementia was evaluated this morning with his family around his bedside. As for the patient, he has no complaints. He denies any fevers chills shortness of breath. Family continues to tell me that this patient has had difficulty with agitation ever since his coming to the hospital. He is also not been able to sleep. He's been telling his family that he is driving a car and doing the motions of using a steering wheel and putting his foot on the pedal. - Review of Systems General: Reports: Other (See history of present illness) - Patient Data Vitals - Most Recent: Last Vital Signs Temp 36.6 C 06/06/17 12:00 Pulse 88 06/06/17 12:00 Resp 20 06/06/17 12:00 BP 155/84 H 06/06/17 12:00 Pulse Ox 92 L 06/06/17 12:00 Weight - Most Recent: 81.5 kg I&O - Last 24 Hours: Intake & Output 06/05/17 06/06/17 06/06/17 22:59 06:59 14:59 Intake Total 650 300 Output Total 150 450 Balance 500 -150 Lab Results Last 24 Hours: Laboratory Results - last 24 hr 06/06/17 06/06/17 Range/Units 05:20 05:20 WBC 7.87 (4.0-11.0) K/uL RBC 4.70 (4.50-5.90) M/uL Hgb 14.4 (13.0-17.0) g/dL Hct 43.7 (38.0-50.0) % MCV 93.0 (80.0-98.0) fL MCH 30.6 (27.0-32.0) pg MCHC 33.0 (31.0-37.0) g/dL RDW Std Deviation 45.9 (28.0-62.0) fl RDW Coeff of Madhu 14 (11.0-15.0) % Plt Count 178 (150-400) K/uL MPV 9.90 (7.40-12.00) fL Neut % (Auto) 72.8 (48.0-80.0) % Lymph % (Auto) 16.9 (16.0-40.0) % Deuel % (Auto) 9.4 (0.0-15.0) % Eos % (Auto) 0.8 (0.0-7.0) % Baso % (Auto) 0.1 (0.0-1.5) % Neut # (Auto) 5.7 (1.4-5.7) K/uL Lymph # (Auto) 1.3 (0.6-2.4) K/uL Deuel # (Auto) 0.7 (0.0-0.8) K/uL Eos # (Auto) 0.1 (0.0-0.7) K/uL Baso # (Auto) 0.0 (0.0-0.1) K/uL Nucleated RBC % 0.0 /100WBC Nucleated RBCs # 0 K/uL Sodium 144 (136-146) mmol/L Potassium 3.8 (3.5-5.1) mmol/L Chloride 115 H (98-110) mmol/L Carbon Dioxide 21 (21-31) mmol/L BUN 17 (6.0-23.0) mg/dL Creatinine 1.1 (0.6-1.5) mg/dL Est Cr Clr Drug Dosing 56.39 mL/min Estimated GFR (MDRD) > 60.0 ml/min Glucose 118 H (60-110) mg/dL Calcium 9.3 (8.8-10.8) mg/dL Magnesium 1.6 (1.5-2.3) mEq/L Total Bilirubin 0.7 (0.1-1.5) mg/dL AST 25 (5-40) IU/L ALT 14 (8-54) IU/L Alkaline Phosphatase 149 (40-150) Total Protein 6.8 (6.0-8.0) g/dL Albumin 4.0 (3.4-4.8) g/dL Globulin 2.8 (2.0-3.5) g/dL Albumin/Globulin Ratio 1.4 (1.3-2.8) [place] Results Last 24 Hours: Microbiology 06/04/17 20:45 Aerobic Blood Culture - Preliminary Blood - Venous - Lab Draw NO GROWTH AFTER 1 DAY Anaerobic Blood Culture - Preliminary NO GROWTH AFTER 1 DAY 06/04/17 20:35 Aerobic Blood Culture - Preliminary Blood - Venous NO GROWTH AFTER 1 DAY Anaerobic Blood Culture - Preliminary NO GROWTH AFTER 1 DAY Med Orders - Current: Current Medications Acetaminophen (Tylenol) 500 mg PO Q4H PRN PRN Reason: Pain (Mild 1-3)/fever Last Admin: 06/04/17 21:57 Dose: 500 mg Bisacodyl (Dulcolax) 5 mg PO DAILY PRN PRN Reason: Constipation Docusate Sodium (Colace) 100 mg PO BID PRN PRN Reason: Constipation Donepezil HCl (Aricept) 5 mg PO DAILY [facility] Last Admin: 06/06/17 08:16 Dose: 5 mg Heparin Sodium (Porcine) (Heparin Sodium) 5,000 units SUBCUT Q8H [facility] Last Admin: 06/06/17 08:12 Dose: 5,000 units Melatonin (Melatonin) 9 mg PO BEDTIME [facility] Sertraline HCl (Zoloft) 100 mg PO DAILY [facility] Last Admin: 06/06/17 08:15 Dose: 100 mg Tamsulosin HCl (Flomax) 0.4 mg PO DAILY [facility] Last Admin: 06/06/17 08:15 Dose: 0.4 mg Temazepam (Restoril) 15 mg PO BEDTIME PRN PRN Reason: Sleep Last Admin: 06/05/17 22:51 Dose: 15 mg Discontinued Medications Sodium Chloride (Normal Saline) 1,000 mls @ 125 mls/hr IV STAT [facility] Last Admin: 06/04/17 17:46 Dose: 125 mls/hr Cefepime HCl 1 gm/ Premix 50 mls @ 100 mls/hr IV Q8H [facility] Last Admin: 06/05/17 05:22 Dose: 100 mls/hr Sodium Chloride (Normal Saline) 1,000 mls @ 150 mls/hr IV DAILY [facility] Sodium Chloride (Normal Saline) 1,000 mls @ 125 mls/hr IV ASDIRECTED [facility] Last Admin: 06/05/17 01:20 Dose: 125 mls/hr Cefepime HCl 1 gm/ Premix 50 mls @ 100 mls/hr IV Q8H [facility] Last Admin: 06/06/17 04:13 Dose: 100 mls/hr Influenza Virus Vaccine (Pharmacy To Dose - Influenza Vaccine) 1 each IM ONETIME ONE Stop: 06/04/17 19:51 Influenza Virus Vaccine (Fluarix Quad [id number]) 60 mcg IM .ONCE ONE Stop: 06/04/17 20:01 - Exam General: Alert, Oriented Neck: Supple Lungs: Clear to Auscultation, Normal Respiratory Effort Cardiovascular: Regular Rate, Regular Rhythm GI/Abdominal Exam: Normal Bowel Sounds, Soft Extremities: Normal Inspection Peripheral Pulses: 2+: Dorsalis Pedis (L), Dorsalis Pedis (R) Skin: Warm, Dry, Intact - Problem List Review Problem List Initiated/Reviewed/Updated: Yes - Plan Plan:: Assessment: #1. Leukocytosis improved #2. History of Alzheimer's dementia #3. Acute signs of agitation Plan: #1. PT to evaluate and treat #2. Stop IV cefepime #3. Follow up on blood cultures. Negative so far. #4. Anticipate discharge to [place] #5. Melatonin for sleep. His acute agitation can be secondary to a new environment. We'll hold off on any antipsychotic medications for now.
[2017-06-06] MEDS ORDERED: Sodium Chloride 0.9% 1,000 ML IV ONE (17:09)
[2017-06-06] MEDS ORDERED: Magnesium Sulfate/Water 2 GM in Premix Bag 1 BAG IV ONE (17:22)
[2017-06-06] MEDS: Melatonin 3 MG Tab PO SCH (20:21)
[2017-06-07] MEDS: Heparin Sodium 5,000 Units/ML Vial SUBCUT SCH ×4 (01:04→23:50)
[2017-06-07 06:34] LABS: CHLORIDE,CL 115 mmol/L (98-110); SODIUM,NA 144 mmol/L (136-146)
[2017-06-07] MEDS: Donepezil 5 MG Tab PO SCH (08:21)
[2017-06-07] MEDS: Sertraline 100 MG Tab PO SCH (08:21)
[2017-06-07] MEDS: Tamsulosin 0.4 MG Cap.ER PO SCH (08:21)
[2017-06-07] MEDS: Melatonin 3 MG Tab PO SCH (22:18)
[2017-06-08] MEDS: Heparin Sodium 5,000 Units/ML Vial SUBCUT SCH ×2 (08:22→16:08)
[2017-06-08] MEDS: Donepezil 5 MG Tab PO SCH (08:22)
[2017-06-08] MEDS: Sertraline 100 MG Tab PO SCH (08:22)
[2017-06-08] MEDS: Tamsulosin 0.4 MG Cap.ER PO SCH (08:22)
--- NOTE | 2017-06-08 09:30 | PCM.PN ---
- General Info Date of Service: 06/07/17 - Review of Systems Systems Review Comment:: no new complaints - Patient Data Vitals - Most Recent: Last Vital Signs Temp 36.6 C 06/08/17 08:00 Pulse 62 06/08/17 08:00 Resp 20 06/08/17 08:00 BP 120/65 06/08/17 08:00 Pulse Ox 92 L 06/08/17 08:00 Weight - Most Recent: 81.5 kg I&O - Last 24 Hours: Intake & Output 06/07/17 06/08/17 06/08/17 22:59 06:59 14:59 Intake Total 940 300 Output Total 0 Balance 940 300 [place] Results Last 24 Hours: Microbiology 06/04/17 20:45 Aerobic Blood Culture - Preliminary Blood - Venous - Lab Draw NO GROWTH AFTER 3 DAYS Anaerobic Blood Culture - Preliminary NO GROWTH AFTER 3 DAYS 06/04/17 20:35 Aerobic Blood Culture - Preliminary Blood - Venous NO GROWTH AFTER 3 DAYS Anaerobic Blood Culture - Preliminary NO GROWTH AFTER 3 DAYS Med Orders - Current: Current Medications Acetaminophen (Tylenol) 500 mg PO Q4H PRN PRN Reason: Pain (Mild 1-3)/fever Last Admin: 06/04/17 21:57 Dose: 500 mg Bisacodyl (Dulcolax) 5 mg PO DAILY PRN PRN Reason: Constipation Docusate Sodium (Colace) 100 mg PO BID PRN PRN Reason: Constipation Donepezil HCl (Aricept) 5 mg PO DAILY [facility] Last Admin: 06/08/17 08:22 Dose: 5 mg Heparin Sodium (Porcine) (Heparin Sodium) 5,000 units SUBCUT Q8H [facility] Last Admin: 06/08/17 08:22 Dose: 5,000 units Melatonin (Melatonin) 9 mg PO BEDTIME [facility] Last Admin: 06/07/17 22:18 Dose: Not Given Sertraline HCl (Zoloft) 100 mg PO DAILY [facility] Last Admin: 06/08/17 08:22 Dose: 100 mg Tamsulosin HCl (Flomax) 0.4 mg PO DAILY [facility] Last Admin: 06/08/17 08:22 Dose: 0.4 mg Temazepam (Restoril) 15 mg PO BEDTIME PRN PRN Reason: Sleep Last Admin: 06/05/17 22:51 Dose: 15 mg Discontinued Medications Sodium Chloride (Normal Saline) 1,000 mls @ 125 mls/hr IV STAT [facility] Last Admin: 06/04/17 17:46 Dose: 125 mls/hr Cefepime HCl 1 gm/ Premix 50 mls @ 100 mls/hr IV Q8H [facility] Last Admin: 06/05/17 05:22 Dose: 100 mls/hr Sodium Chloride (Normal Saline) 1,000 mls @ 150 mls/hr IV DAILY [facility] Sodium Chloride (Normal Saline) 1,000 mls @ 125 mls/hr IV ASDIRECTED [facility] Last Admin: 06/05/17 01:20 Dose: 125 mls/hr Cefepime HCl 1 gm/ Premix 50 mls @ 100 mls/hr IV Q8H [facility] Last Admin: 06/06/17 04:13 Dose: 100 mls/hr Sodium Chloride (Normal Saline) 1,000 mls @ 999 mls/hr IV .Bolus ONE Stop: 06/06/17 18:09 Last Admin: 06/06/17 18:01 Dose: Not Given Magnesium Sulfate 2 gm/ Premix 50 mls @ 50 mls/hr IV ONETIME ONE Stop: 06/06/17 18:21 Last Admin: 06/06/17 17:52 Dose: 50 mls/hr Influenza Virus Vaccine (Pharmacy To Dose - Influenza Vaccine) 1 each IM ONETIME ONE Stop: 06/04/17 19:51 Influenza Virus Vaccine (Fluarix Quad [id number]) 60 mcg IM .ONCE ONE Stop: 06/04/17 20:01 - Exam General: Cooperative. No: Oriented Lungs: Clear to Auscultation, Normal Respiratory Effort Cardiovascular: Regular Rate, Regular Rhythm GI/Abdominal Exam: Normal Bowel Sounds, Soft, Non-Tender Extremities: Non-Tender, No Pedal Edema Skin: Warm, Dry, Intact Neurological: No New Focal Deficit - Problem List Review Problem List Initiated/Reviewed/Updated: Yes - Plan Plan:: 72 yo male admitted for obsevation due to mild leukocytosis and tachycardia. sepsis has been ruled out. He is now awaiting [facility] placement.
--- NOTE | 2017-06-08 09:32 | PCM.PN ---
- Review of Systems Systems Review Comment:: no complaints - Patient Data Vitals - Most Recent: Last Vital Signs Temp 36.6 C 06/08/17 08:00 Pulse 62 06/08/17 08:00 Resp 20 06/08/17 08:00 BP 120/65 06/08/17 08:00 Pulse Ox 92 L 06/08/17 08:00 Weight - Most Recent: 81.5 kg I&O - Last 24 Hours: Intake & Output 06/07/17 06/08/17 06/08/17 22:59 06:59 14:59 Intake Total 940 300 Output Total 0 Balance 940 300 [place] Results Last 24 Hours: Microbiology 06/04/17 20:45 Aerobic Blood Culture - Preliminary Blood - Venous - Lab Draw NO GROWTH AFTER 3 DAYS Anaerobic Blood Culture - Preliminary NO GROWTH AFTER 3 DAYS 06/04/17 20:35 Aerobic Blood Culture - Preliminary Blood - Venous NO GROWTH AFTER 3 DAYS Anaerobic Blood Culture - Preliminary NO GROWTH AFTER 3 DAYS Med Orders - Current: Current Medications Acetaminophen (Tylenol) 500 mg PO Q4H PRN PRN Reason: Pain (Mild 1-3)/fever Last Admin: 06/04/17 21:57 Dose: 500 mg Bisacodyl (Dulcolax) 5 mg PO DAILY PRN PRN Reason: Constipation Docusate Sodium (Colace) 100 mg PO BID PRN PRN Reason: Constipation Donepezil HCl (Aricept) 5 mg PO DAILY [facility] Last Admin: 06/08/17 08:22 Dose: 5 mg Heparin Sodium (Porcine) (Heparin Sodium) 5,000 units SUBCUT Q8H [facility] Last Admin: 06/08/17 08:22 Dose: 5,000 units Melatonin (Melatonin) 9 mg PO BEDTIME [facility] Last Admin: 06/07/17 22:18 Dose: Not Given Sertraline HCl (Zoloft) 100 mg PO DAILY [facility] Last Admin: 06/08/17 08:22 Dose: 100 mg Tamsulosin HCl (Flomax) 0.4 mg PO DAILY [facility] Last Admin: 06/08/17 08:22 Dose: 0.4 mg Temazepam (Restoril) 15 mg PO BEDTIME PRN PRN Reason: Sleep Last Admin: 06/05/17 22:51 Dose: 15 mg Discontinued Medications Sodium Chloride (Normal Saline) 1,000 mls @ 125 mls/hr IV STAT [facility] Last Admin: 06/04/17 17:46 Dose: 125 mls/hr Cefepime HCl 1 gm/ Premix 50 mls @ 100 mls/hr IV Q8H [facility] Last Admin: 06/05/17 05:22 Dose: 100 mls/hr Sodium Chloride (Normal Saline) 1,000 mls @ 150 mls/hr IV DAILY [facility] Sodium Chloride (Normal Saline) 1,000 mls @ 125 mls/hr IV ASDIRECTED [facility] Last Admin: 06/05/17 01:20 Dose: 125 mls/hr Cefepime HCl 1 gm/ Premix 50 mls @ 100 mls/hr IV Q8H [facility] Last Admin: 06/06/17 04:13 Dose: 100 mls/hr Sodium Chloride (Normal Saline) 1,000 mls @ 999 mls/hr IV .Bolus ONE Stop: 06/06/17 18:09 Last Admin: 06/06/17 18:01 Dose: Not Given Magnesium Sulfate 2 gm/ Premix 50 mls @ 50 mls/hr IV ONETIME ONE Stop: 06/06/17 18:21 Last Admin: 06/06/17 17:52 Dose: 50 mls/hr Influenza Virus Vaccine (Pharmacy To Dose - Influenza Vaccine) 1 each IM ONETIME ONE Stop: 06/04/17 19:51 Influenza Virus Vaccine (Fluarix Quad [id number]) 60 mcg IM .ONCE ONE Stop: 06/04/17 20:01 - Exam General: Cooperative, No Acute Distress Extremities: No Pedal Edema Neurological: No New Focal Deficit Psy/Mental Status: Normal Affect, Normal Mood - Problem List Review Problem List Initiated/Reviewed/Updated: Yes - Plan Plan:: 72 yo male admitted due to mild leukocytosis and tachycardia. sepsis has been ruled out. He is now awaiting [facility] placement.
[2017-06-08] MEDS: Melatonin 3 MG Tab PO SCH (20:18)
[2017-06-09] MEDS: Heparin Sodium 5,000 Units/ML Vial SUBCUT SCH ×4 (00:59→23:01)
[2017-06-09 06:52] LABS: CHLORIDE,CL 111 mmol/L (98-110); SODIUM,NA 142 mmol/L (136-146)
[2017-06-09] MEDS: Tamsulosin 0.4 MG Cap.ER PO SCH (08:33)
[2017-06-09] MEDS: Sertraline 100 MG Tab PO SCH (08:33)
[2017-06-09] MEDS: Donepezil 5 MG Tab PO SCH (08:33)
--- NOTE | 2017-06-09 10:17 | PCM.DCSUM1 ---
Discharge Summary - Hospital Course Brief History: This 72 year old male with pmh of Alzheimer's dementia and HTN presented on 06/04 with his daughter to the ED with concerns of being shaky and more weak. They noticed he was more confused and agitated than his usual with some transient slurring of speech. Leukocytosis at 12,090 noted, BUN 14, Cr 1.6 , UA negative, Tox screen negative. CXR negative for infiltrate and Head CT negative as well. He was admitted with AMS rule out sepsis. - Discharge Data Discharge Date: 06/09/17 Discharge Disposition: DC/Tfer to SNF 03 Condition: Good - Patient Instructions Diet: Regular Diet as Tolerated Activity: As Tolerated Showering/Bathing: May Shower Notify Provider of: Fever, Increased Pain, Swelling and Redness, Drainage, Nausea and/or Vomiting Other/Special Instructions: PT/OT/ST to evaluate and treat - Discharge Plan Prescriptions/Med Rec: Acetaminophen [Tylenol] 500 mg PO Q4H PRN #60 tablet PRN Reason: Pain (Mild 1-3) Bisacodyl [Dulcolax] 5 mg PO DAILY PRN #10 tablet PRN Reason: Constipation Docusate Sodium [Colace] 100 mg PO BID PRN #10 cap PRN Reason: Constipation Melatonin 9 mg PO BEDTIME #30 tablet Temazepam [Restoril] 15 mg PO BEDTIME PRN #7 cap PRN Reason: Insomnia Home Medications: Home Meds Losartan/Hydrochlorothiazide [Losartan-HCTZ 100-12.5 MG] 1 mg PO DAILY 11/28/13 [History] Donepezil [Aricept] 5 mg PO DAILY 06/04/17 [History] Sertraline [Zoloft] 100 mg PO DAILY 06/04/17 [History] Tamsulosin [Flomax] 0.4 mg PO DAILY 06/04/17 [History] Acetaminophen [Tylenol] 500 mg PO Q4H PRN #60 tablet 06/09/17 [Rx] Bisacodyl [Dulcolax] 5 mg PO DAILY PRN #10 tablet 06/09/17 [Rx] Docusate Sodium [Colace] 100 mg PO BID PRN #10 cap 06/09/17 [Rx] Melatonin 9 mg PO BEDTIME #30 tablet 06/09/17 [Rx] Temazepam [Restoril] 15 mg PO BEDTIME PRN #7 cap 06/09/17 [Rx] Referrals: Vince Gonzalez MD [Physician] - - Discharge Summary/Plan Comment DC Time >30 min.: No Discharge Summary/Plan Comment: Discharge Diagnoses: AMS-resolved Sepsis- ruled out no source of infection Alzheimer's dementia HTN Suzette was admitted and initially treated with Cefepime to cover for sepsis. Leukocytosis resolved and no source of infection could be found. His AMS symptoms of confusion and agitation improved overnight with fluids. Family requested placement due to increased help with ADLs and confusion with Alzheimer 's. [place] [facility] arranged. Today he continues to be at baseline and family continues to agree with [place] placement. I will speak with Dr. Gonzalez regarding transfer to [place]. Will continue home medications of Aricept, Losartan/HCTZ, Sertraline. No leukocytosis today, BUN 12, Cr 0.8. BC negative. He is to return to ED or clinic if concerns should arise. - General Info Date of Service: 06/09/17 Admission Dx/Problem (Free Text: Admission Diagnosis/Problem Admission Diagnosis/Problem Delirium Subjective Update: Family at bedside, patient alert and cooperative. No complaints. Functional Status: Reports: Pain Controlled - Review of Systems General: Denies: Fever Pulmonary: Reports: No Symptoms. Denies: Shortness of Breath Cardiovascular: Reports: No Symptoms. Denies: Chest Pain Gastrointestinal: Reports: No Symptoms. Denies: Abdominal Pain Genitourinary: Reports: No Symptoms - Patient Data Vitals - Most Recent: Last Vital Signs Temp 97.4 F 06/09/17 08:00 Pulse 75 06/09/17 08:00 Resp 20 06/09/17 01:21 BP 148/83 H 06/09/17 08:00 Pulse Ox 92 L 06/09/17 01:21 Weight - Most Recent: 81.5 kg I&O - Last 24 hours: Intake & Output 06/08/17 06/09/17 06/09/17 22:59 06:59 14:59 Intake Total 900 300 Output Total 240 Balance 900 60 Lab Results - Last 24 hrs: Laboratory Results - last 24 hr 06/09/17 06/09/17 Range/Units 06:13 06:13 WBC 6.09 (4.0-11.0) K/uL RBC 4.60 (4.50-5.90) M/uL Hgb 13.9 (13.0-17.0) g/dL Hct 42.8 (38.0-50.0) % MCV 93.0 (80.0-98.0) fL MCH 30.2 (27.0-32.0) pg MCHC 32.5 (31.0-37.0) g/dL RDW Std Deviation 46.0 (28.0-62.0) fl RDW Coeff of Madhu 14 (11.0-15.0) % Plt Count 191 (150-400) K/uL MPV 10.00 (7.40-12.00) fL Neut % (Auto) 61.6 (48.0-80.0) % Lymph % (Auto) 25.1 (16.0-40.0) % [place] % (Auto) 10.5 (0.0-15.0) % Eos % (Auto) 2.5 (0.0-7.0) % Baso % (Auto) 0.3 (0.0-1.5) % Neut # (Auto) 3.8 (1.4-5.7) K/uL Lymph # (Auto) 1.5 (0.6-2.4) K/uL [place] # (Auto) 0.6 (0.0-0.8) K/uL Eos # (Auto) 0.2 (0.0-0.7) K/uL Baso # (Auto) 0.0 (0.0-0.1) K/uL Nucleated RBC % 0.0 /100WBC Nucleated RBCs # 0 K/uL Sodium 142 (136-146) mmol/L Potassium 3.7 (3.5-5.1) mmol/L Chloride 111 H (98-110) mmol/L Carbon Dioxide 25 (21-31) mmol/L BUN 12 (6.0-23.0) mg/dL Creatinine 0.8 (0.6-1.5) mg/dL Est Cr Clr Drug Dosing 77.53 mL/min Estimated GFR (MDRD) > 60.0 ml/min Glucose 105 (60-110) mg/dL Calcium 9.0 (8.8-10.8) mg/dL MIGUELANGEL Results - Last 24 hrs: Microbiology 06/04/17 20:45 Aerobic Blood Culture - Preliminary Blood - Venous - Lab Draw NO GROWTH AFTER 4 DAYS Anaerobic Blood Culture - Preliminary NO GROWTH AFTER 4 DAYS 06/04/17 20:35 Aerobic Blood Culture - Preliminary Blood - Venous NO GROWTH AFTER 4 DAYS Anaerobic Blood Culture - Preliminary NO GROWTH AFTER 4 DAYS Med Orders - Current: Current Medications Acetaminophen (Tylenol) 500 mg PO Q4H PRN PRN Reason: Pain (Mild 1-3)/fever Last Admin: 06/04/17 21:57 Dose: 500 mg Bisacodyl (Dulcolax) 5 mg PO DAILY PRN PRN Reason: Constipation Docusate Sodium (Colace) 100 mg PO BID PRN PRN Reason: Constipation Donepezil HCl (Aricept) 5 mg PO DAILY [facility] Last Admin: 06/09/17 08:33 Dose: 5 mg Heparin Sodium (Porcine) (Heparin Sodium) 5,000 units SUBCUT Q8H [facility] Last Admin: 06/09/17 08:32 Dose: 5,000 units Melatonin (Melatonin) 9 mg PO BEDTIME [facility] Last Admin: 06/08/17 20:18 Dose: 9 mg Sertraline HCl (Zoloft) 100 mg PO DAILY [facility] Last Admin: 06/09/17 08:33 Dose: 100 mg Tamsulosin HCl (Flomax) 0.4 mg PO DAILY [facility] Last Admin: 06/09/17 08:33 Dose: 0.4 mg Temazepam (Restoril) 15 mg PO BEDTIME PRN PRN Reason: Sleep Last Admin: 06/05/17 22:51 Dose: 15 mg Discontinued Medications Sodium Chloride (Normal Saline) 1,000 mls @ 125 mls/hr IV STAT [facility] Last Admin: 06/04/17 17:46 Dose: 125 mls/hr Cefepime HCl 1 gm/ Premix 50 mls @ 100 mls/hr IV Q8H [facility] Last Admin: 06/05/17 05:22 Dose: 100 mls/hr Sodium Chloride (Normal Saline) 1,000 mls @ 150 mls/hr IV DAILY [facility] Sodium Chloride (Normal Saline) 1,000 mls @ 125 mls/hr IV ASDIRECTED [facility] Last Admin: 06/05/17 01:20 Dose: 125 mls/hr Cefepime HCl 1 gm/ Premix 50 mls @ 100 mls/hr IV Q8H [facility] Last Admin: 06/06/17 04:13 Dose: 100 mls/hr Sodium Chloride (Normal Saline) 1,000 mls @ 999 mls/hr IV .Bolus ONE Stop: 06/06/17 18:09 Last Admin: 06/06/17 18:01 Dose: Not Given Magnesium Sulfate 2 gm/ Premix 50 mls @ 50 mls/hr IV ONETIME ONE Stop: 06/06/17 18:21 Last Admin: 06/06/17 17:52 Dose: 50 mls/hr Influenza Virus Vaccine (Pharmacy To Dose - Influenza Vaccine) 1 each IM ONETIME ONE Stop: 06/04/17 19:51 Influenza Virus Vaccine (Fluarix Quad [id number]) 60 mcg IM .ONCE ONE Stop: 06/04/17 20:01 - Exam General: Reports: Alert, Cooperative, No Acute Distress Lungs: Reports: Clear to Auscultation, Normal Respiratory Effort Cardiovascular: Reports: Regular Rate, Regular Rhythm GI/Abdominal Exam: Normal Bowel Sounds, Soft, Non-Tender, No Organomegaly, No Distention, No Abnormal Bruit, No Mass, Pelvis Stable Neurological: Reports: No New Focal Deficit Psy/Mental Status: Reports: Alert, Normal Affect, Normal Mood *Q Meaningful Use (DIS) - VTE *Q VTE Criteria *Q: - Stroke *Q Stroke Criteria *Q: - AMI *Q AMI Criteria *Q:
--- NOTE | 2017-06-09 14:09 | PCM.PN ---
- General Info Date of Service: 06/09/17 Admission Dx/Problem (Free Text): Admission Diagnosis/Problem Admission Diagnosis/Problem Delirium Subjective Update: Doing well. Family at bedside. Discharge cancelled to [facility]. [facility] has no available beds at this time Functional Status: Reports: Pain Controlled, Tolerating Diet, Ambulating, Urinating - Review of Systems General: Reports: No Symptoms. Denies: Fever Pulmonary: Reports: No Symptoms. Denies: Shortness of Breath Cardiovascular: Reports: No Symptoms. Denies: Chest Pain Gastrointestinal: Reports: No Symptoms. Denies: Abdominal Pain, Nausea, Vomiting - Patient Data Vitals - Most Recent: Last Vital Signs Temp 96.8 F 06/09/17 12:00 Pulse 75 06/09/17 12:00 Resp 20 06/09/17 12:00 BP 153/83 H 06/09/17 12:00 Pulse Ox 98 06/09/17 12:00 Weight - Most Recent: 81.5 kg I&O - Last 24 Hours: Intake & Output 06/08/17 06/09/17 06/09/17 22:59 06:59 14:59 Intake Total 900 300 Output Total 240 Balance 900 60 Lab Results Last 24 Hours: Laboratory Results - last 24 hr 06/09/17 06/09/17 Range/Units 06:13 06:13 WBC 6.09 (4.0-11.0) K/uL RBC 4.60 (4.50-5.90) M/uL Hgb 13.9 (13.0-17.0) g/dL Hct 42.8 (38.0-50.0) % MCV 93.0 (80.0-98.0) fL MCH 30.2 (27.0-32.0) pg MCHC 32.5 (31.0-37.0) g/dL RDW Std Deviation 46.0 (28.0-62.0) fl RDW Coeff of Madhu 14 (11.0-15.0) % Plt Count 191 (150-400) K/uL MPV 10.00 (7.40-12.00) fL Neut % (Auto) 61.6 (48.0-80.0) % Lymph % (Auto) 25.1 (16.0-40.0) % [place] % (Auto) 10.5 (0.0-15.0) % Eos % (Auto) 2.5 (0.0-7.0) % Baso % (Auto) 0.3 (0.0-1.5) % Neut # (Auto) 3.8 (1.4-5.7) K/uL Lymph # (Auto) 1.5 (0.6-2.4) K/uL [place] # (Auto) 0.6 (0.0-0.8) K/uL Eos # (Auto) 0.2 (0.0-0.7) K/uL Baso # (Auto) 0.0 (0.0-0.1) K/uL Nucleated RBC % 0.0 /100WBC Nucleated RBCs # 0 K/uL Sodium 142 (136-146) mmol/L Potassium 3.7 (3.5-5.1) mmol/L Chloride 111 H (98-110) mmol/L Carbon Dioxide 25 (21-31) mmol/L BUN 12 (6.0-23.0) mg/dL Creatinine 0.8 (0.6-1.5) mg/dL Est Cr Clr Drug Dosing 77.53 mL/min Estimated GFR (MDRD) > 60.0 ml/min Glucose 105 (60-110) mg/dL Calcium 9.0 (8.8-10.8) mg/dL [place] Results Last 24 Hours: Microbiology 06/04/17 20:45 Aerobic Blood Culture - Preliminary Blood - Venous - Lab Draw NO GROWTH AFTER 4 DAYS Anaerobic Blood Culture - Preliminary NO GROWTH AFTER 4 DAYS 06/04/17 20:35 Aerobic Blood Culture - Preliminary Blood - Venous NO GROWTH AFTER 4 DAYS Anaerobic Blood Culture - Preliminary NO GROWTH AFTER 4 DAYS Med Orders - Current: Current Medications Acetaminophen (Tylenol) 500 mg PO Q4H PRN PRN Reason: Pain (Mild 1-3)/fever Last Admin: 06/04/17 21:57 Dose: 500 mg Bisacodyl (Dulcolax) 5 mg PO DAILY PRN PRN Reason: Constipation Docusate Sodium (Colace) 100 mg PO BID PRN PRN Reason: Constipation Donepezil HCl (Aricept) 5 mg PO DAILY [facility] Last Admin: 06/09/17 08:33 Dose: 5 mg Heparin Sodium (Porcine) (Heparin Sodium) 5,000 units SUBCUT Q8H [facility] Last Admin: 06/09/17 08:32 Dose: 5,000 units Melatonin (Melatonin) 9 mg PO BEDTIME [facility] Last Admin: 06/08/17 20:18 Dose: 9 mg Sertraline HCl (Zoloft) 100 mg PO DAILY [facility] Last Admin: 06/09/17 08:33 Dose: 100 mg Tamsulosin HCl (Flomax) 0.4 mg PO DAILY [facility] Last Admin: 06/09/17 08:33 Dose: 0.4 mg Temazepam (Restoril) 15 mg PO BEDTIME PRN PRN Reason: Sleep Last Admin: 06/05/17 22:51 Dose: 15 mg Discontinued Medications Sodium Chloride (Normal Saline) 1,000 mls @ 125 mls/hr IV STAT [facility] Last Admin: 06/04/17 17:46 Dose: 125 mls/hr Cefepime HCl 1 gm/ Premix 50 mls @ 100 mls/hr IV Q8H [facility] Last Admin: 06/05/17 05:22 Dose: 100 mls/hr Sodium Chloride (Normal Saline) 1,000 mls @ 150 mls/hr IV DAILY [facility] Sodium Chloride (Normal Saline) 1,000 mls @ 125 mls/hr IV ASDIRECTED [facility] Last Admin: 06/05/17 01:20 Dose: 125 mls/hr Cefepime HCl 1 gm/ Premix 50 mls @ 100 mls/hr IV Q8H [facility] Last Admin: 06/06/17 04:13 Dose: 100 mls/hr Sodium Chloride (Normal Saline) 1,000 mls @ 999 mls/hr IV .Bolus ONE Stop: 06/06/17 18:09 Last Admin: 06/06/17 18:01 Dose: Not Given Magnesium Sulfate 2 gm/ Premix 50 mls @ 50 mls/hr IV ONETIME ONE Stop: 06/06/17 18:21 Last Admin: 06/06/17 17:52 Dose: 50 mls/hr Influenza Virus Vaccine (Pharmacy To Dose - Influenza Vaccine) 1 each IM ONETIME ONE Stop: 06/04/17 19:51 Influenza Virus Vaccine (Fluarix Quad [id number]) 60 mcg IM .ONCE ONE Stop: 06/04/17 20:01 - Exam General: Alert, Cooperative, No Acute Distress. No: Oriented Lungs: Clear to Auscultation, Normal Respiratory Effort Cardiovascular: Regular Rate, Regular Rhythm GI/Abdominal Exam: Normal Bowel Sounds, Soft, Non-Tender, No Organomegaly, No Distention, No Abnormal Bruit, No Mass, Pelvis Stable Extremities: Normal Inspection, Normal Range of Motion, Non-Tender, No Pedal Edema, Normal Capillary Refill Neurological: No New Focal Deficit Psy/Mental Status: Alert, Normal Affect, Normal Mood - Problem List & Annotations (1) HTN (hypertension) SNOMED Code(s): 62520939 Code(s): I10 - ESSENTIAL (PRIMARY) HYPERTENSION Status: Chronic Current Visit: Yes Qualifiers: Hypertension type: essential hypertension Qualified Code(s): I10 - Essential (primary) hypertension (2) Alzheimer's dementia SNOMED Code(s): 88253753 Code(s): G30.9 - ALZHEIMER'S DISEASE, UNSPECIFIED Status: Chronic Current Visit: Yes Qualifiers: Alzheimer's disease onset: early-onset Dementia behavioral disturbance: without behavioral disturbance Qualified Code(s): G30.0 - Alzheimer's disease with early onset; F02.80 - Dementia in other diseases classified elsewhere without behavioral disturbance; F02.80 - Dementia in other diseases classified elsewhere without behavioral disturbance; F02.80 - Dementia in other diseases classified elsewhere without behavioral disturbance (3) Delirium SNOMED Code(s): 0318580 Code(s): R41.0 - DISORIENTATION, UNSPECIFIED Status: Resolved Current Visit: Yes - Problem List Review Problem List Initiated/Reviewed/Updated: Yes - My Orders Last 24 Hours: My Active Orders 06/09/17 10:17 Ready for Discharge [RC] PER UNIT ROUTINE - Plan Plan:: 72 yo male admitted due to mild leukocytosis and tachycardia. sepsis has been ruled out. [facility] unable to accommodate patient at this time. Awaiting placement in [place] or [place]. Family plans on driving patient when he has acceptance. Likely early tomorrow morning.
[2017-06-09] MEDS ORDERED: FLU Vacc QS 2017-18 (36mos UP)/PF 60 MCG/0.5 ML Syringe IM ONE (16:35)
[2017-06-09] MEDS ORDERED: Pneumococcal Polyvalent-23 Vaccine 0.5 ML SDV IM ONE (16:35)
[2017-06-09] MEDS: Melatonin 3 MG Tab PO SCH (20:06)
--- NOTE | 2017-06-10 08:01 | PCM.DCSUM1 ---
Discharge Summary - Hospital Course Brief History: This 72 year old male with pmh of Alzheimer's dementia and HTN presented on 06/04 with his daughter to the ED with concerns of being shaky and more weak. They noticed he was more confused and agitated than his usual with some transient slurring of speech. Leukocytosis at 12,090 noted, BUN 14, Cr 1.6 , UA negative, Tox screen negative. CXR negative for infiltrate and Head CT negative as well. He was admitted with AMS rule out sepsis. - Discharge Data Discharge Date: 06/10/17 Discharge Disposition: DC/Tfer to SNF 03 Condition: Good - Discharge Diagnosis/Problem(s) (1) HTN (hypertension) SNOMED Code(s): 18055312 ICD Code: I10 - ESSENTIAL (PRIMARY) HYPERTENSION Status: Chronic Current Visit: Yes Qualifiers: Hypertension type: essential hypertension Qualified Code(s): I10 - Essential (primary) hypertension (2) Alzheimer's dementia SNOMED Code(s): 73682622 ICD Code: G30.9 - ALZHEIMER'S DISEASE, UNSPECIFIED Status: Chronic Current Visit: Yes Qualifiers: Alzheimer's disease onset: early-onset Dementia behavioral disturbance: without behavioral disturbance Qualified Code(s): G30.0 - Alzheimer's disease with early onset; F02.80 - Dementia in other diseases classified elsewhere without behavioral disturbance; F02.80 - Dementia in other diseases classified elsewhere without behavioral disturbance; F02.80 - Dementia in other diseases classified elsewhere without behavioral disturbance (3) Delirium SNOMED Code(s): 2470902 ICD Code: R41.0 - DISORIENTATION, UNSPECIFIED Status: Resolved Current Visit: Yes - Patient Instructions Diet: Regular Diet as Tolerated Activity: As Tolerated Showering/Bathing: May Shower Notify Provider of: Fever, Increased Pain, Swelling and Redness, Drainage, Nausea and/or Vomiting Other/Special Instructions: PT/OT/ST to evaluate and treat - Discharge Plan Prescriptions/Med Rec: Acetaminophen [Tylenol] 500 mg PO Q4H PRN #60 tablet PRN Reason: Pain (Mild 1-3) Bisacodyl [Dulcolax] 5 mg PO DAILY PRN #10 tablet PRN Reason: Constipation Docusate Sodium [Colace] 100 mg PO BID PRN #10 cap PRN Reason: Constipation Melatonin 9 mg PO BEDTIME #30 tablet Temazepam [Restoril] 15 mg PO BEDTIME PRN #7 cap PRN Reason: Insomnia Home Medications: Home Meds Losartan/Hydrochlorothiazide [Losartan-HCTZ 100-12.5 MG] 1 mg PO DAILY 11/28/13 [History] Donepezil [Aricept] 5 mg PO DAILY 06/04/17 [History] Sertraline [Zoloft] 100 mg PO DAILY 06/04/17 [History] Tamsulosin [Flomax] 0.4 mg PO DAILY 06/04/17 [History] Acetaminophen [Tylenol] 500 mg PO Q4H PRN #60 tablet 06/09/17 [Rx] Bisacodyl [Dulcolax] 5 mg PO DAILY PRN #10 tablet 06/09/17 [Rx] Docusate Sodium [Colace] 100 mg PO BID PRN #10 cap 06/09/17 [Rx] Melatonin 9 mg PO BEDTIME #30 tablet 06/09/17 [Rx] Temazepam [Restoril] 15 mg PO BEDTIME PRN #7 cap 06/09/17 [Rx] Patient Handouts: Sepsis, Adult, Alzheimer Disease, Dementia, Hypertension - Discharge Summary/Plan Comment DC Time >30 min.: No Discharge Summary/Plan Comment: Discharge Diagnoses: AMS-resolved Sepsis- ruled out no source of infection Alzheimer's dementia HTN Suzette was admitted and initially treated with Cefepime to cover for sepsis. Leukocytosis resolved and no source of infection could be found. His AMS symptoms of confusion and agitation improved overnight with fluids. Family requested placement due to increased help with ADLs and confusion with Alzheimer 's. [facility] was initially arranged but they had no beds available. New arrangements were made yesterday to go to [place] and family actually is very happy with this since their family is orginally from that area. Today he continues to be at baseline and family continues to agree with placement. Will continue home medications of Aricept, Losartan/HCTZ, Sertraline. No leukocytosis today, BUN 12, Cr 0.8. BC negative. He is to return to ED or clinic if concerns should arise. - General Info Date of Service: 06/10/17 Admission Dx/Problem (Free Text: Admission Diagnosis/Problem Admission Diagnosis/Problem Delirium Subjective Update: Doing well. Sitting up in chair, just finished breakfast. Family at bedside. Denies chest pain, SOB or any concerns this morning, feeling well. Functional Status: Reports: Pain Controlled, Tolerating Diet, Ambulating, Urinating - Review of Systems General: Reports: No Symptoms. Denies: Fever Pulmonary: Reports: No Symptoms. Denies: Shortness of Breath Cardiovascular: Reports: No Symptoms. Denies: Chest Pain, Palpitations Gastrointestinal: Reports: No Symptoms. Denies: Abdominal Pain, Nausea, Vomiting Genitourinary: Reports: No Symptoms. Denies: Dysuria, Frequency, Burning - Patient Data Vitals - Most Recent: Last Vital Signs Temp 96.8 F 06/09/17 20:11 Pulse 85 06/09/17 20:11 Resp 24 H 06/09/17 20:11 BP 136/82 06/09/17 20:11 Pulse Ox 95 06/09/17 20:11 Weight - Most Recent: 81.5 kg I&O - Last 24 hours: Intake & Output 06/09/17 06/10/17 06/10/17 22:59 06:59 14:59 Intake Total 960 400 Output Total 350 Balance 610 400 MIGUELANGEL Results - Last 24 hrs: Microbiology 06/04/17 20:45 Aerobic Blood Culture - Final Blood - Venous - Lab Draw NO GROWTH AFTER 5 DAYS Anaerobic Blood Culture - Final NO GROWTH AFTER 5 DAYS 06/04/17 20:35 Aerobic Blood Culture - Final Blood - Venous NO GROWTH AFTER 5 DAYS Anaerobic Blood Culture - Final NO GROWTH AFTER 5 DAYS Med Orders - Current: Current Medications Acetaminophen (Tylenol) 500 mg PO Q4H PRN PRN Reason: Pain (Mild 1-3)/fever Last Admin: 06/04/17 21:57 Dose: 500 mg Bisacodyl (Dulcolax) 5 mg PO DAILY PRN PRN Reason: Constipation Docusate Sodium (Colace) 100 mg PO BID PRN PRN Reason: Constipation Donepezil HCl (Aricept) 5 mg PO DAILY [facility] Last Admin: 06/09/17 08:33 Dose: 5 mg Heparin Sodium (Porcine) (Heparin Sodium) 5,000 units SUBCUT Q8H [facility] Last Admin: 06/09/17 23:01 Dose: 5,000 units Melatonin (Melatonin) 9 mg PO BEDTIME [facility] Last Admin: 06/09/17 20:06 Dose: 9 mg Sertraline HCl (Zoloft) 100 mg PO DAILY [facility] Last Admin: 06/09/17 08:33 Dose: 100 mg Tamsulosin HCl (Flomax) 0.4 mg PO DAILY [facility] Last Admin: 06/09/17 08:33 Dose: 0.4 mg Temazepam (Restoril) 15 mg PO BEDTIME PRN PRN Reason: Sleep Last Admin: 06/05/17 22:51 Dose: 15 mg Discontinued Medications Sodium Chloride (Normal Saline) 1,000 mls @ 125 mls/hr IV STAT [facility] Last Admin: 06/04/17 17:46 Dose: 125 mls/hr Cefepime HCl 1 gm/ Premix 50 mls @ 100 mls/hr IV Q8H [facility] Last Admin: 06/05/17 05:22 Dose: 100 mls/hr Sodium Chloride (Normal Saline) 1,000 mls @ 150 mls/hr IV DAILY [facility] Sodium Chloride (Normal Saline) 1,000 mls @ 125 mls/hr IV ASDIRECTED [facility] Last Admin: 06/05/17 01:20 Dose: 125 mls/hr Cefepime HCl 1 gm/ Premix 50 mls @ 100 mls/hr IV Q8H [facility] Last Admin: 06/06/17 04:13 Dose: 100 mls/hr Sodium Chloride (Normal Saline) 1,000 mls @ 999 mls/hr IV .Bolus ONE Stop: 06/06/17 18:09 Last Admin: 06/06/17 18:01 Dose: Not Given Magnesium Sulfate 2 gm/ Premix 50 mls @ 50 mls/hr IV ONETIME ONE Stop: 06/06/17 18:21 Last Admin: 06/06/17 17:52 Dose: 50 mls/hr Influenza Virus Vaccine (Pharmacy To Dose - Influenza Vaccine) 1 each IM ONETIME ONE Stop: 06/04/17 19:51 Influenza Virus Vaccine (Fluarix Quad [id number]) 60 mcg IM .ONCE ONE Stop: 06/04/17 20:01 Influenza Virus Vaccine (Fluarix Quad [id number]) 60 mcg IM .ONCE ONE Stop: 06/09/17 16:36 Last Admin: 06/09/17 18:49 Dose: 60 mcg Pneumococcal Polyvalent Vaccine (Pneumovax 23) 0.5 ml IM .ONCE ONE Stop: 06/09/17 16:36 Last Admin: 06/09/17 18:47 Dose: 0.5 ml - Exam General: Reports: Alert, Cooperative, No Acute Distress. Denies: Oriented Lungs: Reports: Clear to Auscultation, Normal Respiratory Effort Cardiovascular: Reports: Regular Rate, Regular Rhythm GI/Abdominal Exam: Normal Bowel Sounds, Soft, Non-Tender, No Organomegaly, No Distention, No Abnormal Bruit, No Mass, Pelvis Stable Extremities: Normal Inspection, Normal Range of Motion, Non-Tender, No Pedal Edema, Normal Capillary Refill Neurological: Reports: No New Focal Deficit Psy/Mental Status: Reports: Alert, Normal Affect, Normal Mood *Q Meaningful Use (DIS) - VTE *Q VTE Criteria *Q: - Stroke *Q Stroke Criteria *Q: - AMI *Q AMI Criteria *Q:
[2017-06-10] MEDS: Donepezil 5 MG Tab PO SCH (08:10)
[2017-06-10] MEDS: Tamsulosin 0.4 MG Cap.ER PO SCH (08:11)
[2017-06-10] MEDS: Heparin Sodium 5,000 Units/ML Vial SUBCUT SCH (08:11)
[2017-06-10] MEDS: Sertraline 100 MG Tab PO SCH (08:11)
[2017-06-10 08:45] VITALS: BP 125/79
== END 2017-06-10 08:45 | DRG 57 ==
LOC: MW.ED 17:06 → MW.MS 18:15 → OBSVTOIN 20:29
PROVIDERS: ADMIT Family Medicine; ATTEND Family Medicine
PROC: 3E0234Z Introduction of Serum, Toxoid and Vaccine into Muscle, Percutaneous Approach (ICD-10-PCS; principal; 2017-06-09)
DX: R41.0 Disorientation, unspecified (principal); R61 Generalized hyperhidrosis; F03.90 Unspecified dementia, unspecified severity, without behavioral disturbance, psychotic disturbance, mood disturbance, and anxiety; G30.0 Alzheimer's disease with early onset; F05 Delirium due to known physiological condition; F02.80 Dementia in other diseases classified elsewhere, unspecified severity, without behavioral disturbance, psychotic disturbance, mood disturbance, and anxiety; I10 Essential (primary) hypertension; F41.8 Other specified anxiety disorders; Z79.899 Other long term (current) drug therapy; Z88.8 Allergy status to other drugs, medicaments and biological substances; D72.829 Elevated white blood cell count, unspecified; R00.0 Tachycardia, unspecified; Z23 Encounter for immunization
CPT/HCPCS: 36415; 51702; 70450; 71010; 80053; 80305; 81001; 82550; 82553; 84443; 84484; 85025; 85610; 87086; 87804 ×2; 96361; 96365; 99285; G0480; J7040; 80048; 83735; 87040; 90686; 90732; 93005; 99284; A9270-GY; G0008; G0009; J0692; J1644; J3475